=== PATIENT | male | born 1980 | race Caucasian/White ===

== ENCOUNTER 2019-05-06 17:05 | Emergency (ER) | payer OTHER, SELFPAY ==
--- NOTE | ~2019-05-06 | CT_ITS ---
EXAMINATION: CTA chest PE protocol DATE: 05/06/2019 17:38 INDICATION: Shortness of breath and dizziness, left-sided chest pain TECHNIQUE: Computed tomography angiography (CTA) of the chest was performed with 100 mL Omnipaque-350 intravenous contrast timed to evaluate the pulmonary arteries. Coronal maximum intensity projection 3D-reconstructions were created by the technologist. The dose-length product (DLP) was 398.04 mGy-cm. Automated exposure control and iterative reconstruction technique were employed. COMPARISON: None. FINDINGS: The pulmonary arteries are well-opacified. No pulmonary embolism is identified. The lungs a re free of acute opacities. There is no pleural effusion or pneumothorax. No pathologically enlarged thoracic lymph nodes are identified. The heart size is normal. IMPRESSION: 1. No pulmonary embolism or acute cardiopulmonary abnormality. Reviewed, dictated and finalized at location A.
[2019-05-06 17:07] VITALS: BP 144/95; PULSE 105; RESP 20; TEMP 36.3; O2SAT 100
[2019-05-06 17:10] VITALS: O2SAT 100
--- NOTE | 2019-05-06 17:12 | ED.SOB ---
HPI - SOB/Dyspnea General Chief Complaint: Shortness of Breath/Dyspnea Stated Complaint: shortness of breath for weeks Time Seen by Provider: 05/06/19 17:09 Source: patient Mode of arrival: ambulatory Limitations: no limitations History of Present Illness HPI Narrative: A 38 y/o male pt presents to the ED, with c/o intermittent SOB x 2 weeks. Pt notes he has a hx of asthma, but states this does not feel similar and his asthma medications are not helping to improve his Sx. He states that he was seen at an urgent care facility last night and had a CXR done that came back clear, and he was prescribed Prednisone and told to follow-up with his PCP on Wednesday. He states that upon waking up this morning he felt fine, but after doing dishes he felt winded. He also notes intermittent dizziness/lightheadedness throughout the day with normal activities, and intermittent aching CP. Pt states that he notices increased pain and discomfort in his chest and back when taking a deep breath, that he states feels similar to when he is running outside when it's cold. He also notes having acid reflux over the past few days. Pt states that he spoke to a friend who has had a Pulmonary embolism before that had similar Sx, and they suggested the pt come to the ED. He denies swelling in his legs, but notes some discomfort to bilateral calves (worse on the lt) with some movements. Pt states he works from home and has no known sick contacts. He notes a PMHx of asthma and has NKA. MD elicited complaint: shortness of breath Pertinent past history: asthma Onset (ago): week(s) (2) Exacerbating factors: other (with normal activity) Known history of: asthma Associated symptoms: chest pain (intermittent aching), pain with inspiration (chest and back), dizziness (intermittent), lightheadedness (intermittent) and other (discomfort to bilateral calves, worse on lt) Treatment prior to arrival: other (Prednisone, asthma medications) Related Data Allergies Allergy/AdvReac Type Severity Reaction Status Date / Time No Known Allergies Allergy Verified 05/06/19 17:11 Review of Systems Review of Systems: All systems reviewed & are unremarkable except as noted in HPI and below Cardiovascular: Cardiovascular: Reports chest pain (intermittent ache), Denies leg edema and Reports other (discomfort in calves, worse on lt) Respiratory: Respiratory: Reports pain on inspiration (chest and back pain with deep breathes) and Reports dyspnea Gastrointestinal: Gastrointestinal: Reports other (acid reflux) Musculoskeletal: Musculoskeletal: Reports back pain (with deep breathes) Neurologic: Reports dizziness (intermittent) and Reports other (intermittent lightheadedness) [facility] Past Medical History Medical History (Updated 05/06/19 @ 18:26 by Mc Godfrey MD) Asthma Family History Family History (Updated 03/13/16 @ 08:14 by DOCTOR UNKNOWN) Father Hypertension Mother Family history of hypothyroidism Other Cerebrovascular accident Family history of cardiovascular disease Family history of malignant neoplasm Social History Social History (Updated 05/06/19 @ 18:12 by Milad [employer]) Smoking status: Never smoker Alcohol intake: current Occupation/Education: occupation Additional occupation/education comments: works from home Comments rt hand tendon surgery Exam Const: General: healthy appearing, no acute distress and alert Nutritional Appearance: well nourished Orientation/consciousness: patient oriented x3 HENMT: Head: normal to inspection Mouth: Yes moist mucous membranes Neck: Neck: normal visual inspection Chest: Chest palpation & inspection: normal inspection of the chest Resp: Effort & Inspection: normal respiratory effort Auscultation: rales on the left at the base Cardio: Rate: tachycardic Rhythm: regular rhythm GI: GI Palp: Yes Soft to palpation and No Tenderness to palpation present (GI) Skin: General skin exam: normal color
[2019-05-06 17:34] LABS: Estimated CRCL calculation 78 ml/min; Estimated Glomerular Filt Rate > 60
--- NOTE | 2019-05-06 17:36 | ECG_ITS ---
Measurements Intervals [place] Rate: 102 P: 75 TX: 128 QRS: 40 QRSD: 112 T: 71 QT: 397 QTc: 519 Interpretive Statements SINUS TACHYCARDIA VENTRICULAR PREMATURE COMPLEX INCOMPLETE RIGHT BUNDLE BRANCH BLOCK CANNOT RULE OUT SEPTAL INFARCT, AGE INDETERMINATE ABNORMAL ECG Electronically Signed On 05-07-2019 7:54:49 CDT by Marv Cowan D.O.
[2019-05-06 17:44] LABS: Basophils Percent Auto 0.3 % (0.2-1.2); Hematocrit 43.8 % (42.0-52.0); Hemoglobin 15.1 g/dL (14.0-18.0); Immature Granulocyte Absolute 0.02 K/mm3 (0.00-0.031); Immature Granulocyte Percent A 0.2 % (0-0.5); Lymphocytes Absolute Auto 1.41 K/mm3 (0.9-3.2); Lymphocytes Percent Auto 16.2 % (18.3-44.2); Mean Corpuscular HGB Conc 34.5 g/dl (32-36); Mean Corpuscular Hemoglobin 30.1 pg (26-34); Mean Corpuscular Volume 87.3 fl (80-100); Mean Platelet Volume 10.3 fl (7.4-10.4); Monocytes Absolute Auto 0.3 K/mm3 (0.1-0.6); Monocytes Percent Auto 3.1 % (2.6-8.5); Neutrophils Percent Auto 80.2 % (45.5-73.1); Platelet Count Result 334 k/mm3 (150-375); Red Blood Count 5.02 M/mm3 (4.6-6.20); Red Cell Distribution Width 12.2 % (11.5-14.5); White Blood Count 8.7 K/mm3 (4.5-10.0)
[2019-05-06 17:54] LABS: Prothrombin Time 12.5 Seconds (11.1-14.7)
[2019-05-06 17:55] LABS: Partial Thromboplastin Time 26.6 SECONDS (22.3-36.8)
[2019-05-06 17:57] LABS: Blood Urea Nitrogen 17 mg/dL (9-20); Calcium 9.8 mg/dL (8.4-10.2); Carbon Dioxide 25 mmol/L (22-30); Chloride 104 mmol/L (98-107); Estimated CRCL calculation 85 ml/min; Estimated Glomerular Filt Rate > 60; Glucose 136 mg/dL (75-110); Sodium 136 mmol/L (137-145)
[2019-05-06 18:11] LABS: NT Pro B Type Natriuretic Pept 20 PG/ML (5-100); Troponin I < 0.012 ng/mL (0.000-0.034)
[2019-05-06 18:34] VITALS: BP 124/70; PULSE 99; RESP 20; TEMP 36.7; O2SAT 100
== END 2019-05-06 18:35 | disposition home or self-care (01) ==
PROVIDERS: Emergency Provider Emergency Medicine; PCP Internal Medicine
DX: R06.00 Dyspnea, unspecified (principal); J45.909 Unspecified asthma, uncomplicated; R00.0 Tachycardia, unspecified; I49.3 Ventricular premature depolarization; I45.10 Unspecified right bundle-branch block; R94.31 Abnormal electrocardiogram [ECG] [EKG]
CPT/HCPCS: 36415; 71275; 80048; 83880; 84484; 85025; 85610; 85730; 93005; 99284; Q9967

== ENCOUNTER 2019-06-13 08:53 | Outpatient (CLI) | payer OTHER, SELFPAY ==
--- NOTE | 2019-06-13 08:58 | EST_ITS ---
Patient Info Name: Niraj Singh Age: 39 years : 1980 Gender: Male Ht: 70 in Wt: 175 lbs BSA: 1.99 m2 HR: 75 bpm BP: 125 / 70 mmHg Technical Quality: Good Exam Date: 06/13/2019 9:21 AM Exam Location: [facility] Patient Status: Outpatient Admit Date: 06/13/2019 Staff Ordering Physician: Jennifer Kilgore NP Italian Tutor: Montez Delgado RDCS Attending Provider: MARV CATHERINE DO Referring Physician: Magui REARDON; Exercise Technologist: Orquidea Cooper RDCS Exercise Physician: Marv Catherine DO Exam Type: CA stress echo Study Info Indications R94.31 - Abnormal electrocardiogram ECG EKG Treadmill exercise stress echocardiogram is performed. Summary 1. 1. Negative Andres exercise stress test for ischemic ST changes by ECG criteria. 2. 2. Good functional capacity, achieving 13 METs or workload. 3. 3. Appropriate HR response to exercise. 4. 4. Appropriate HR recovery at 1 minute post exercise. 5. 5. Negative stress echocardiogram for ischemia by wall motion analysis. 6. 6. Patient informed of the above results. Stress Echo Findings Left Ventricle Appropriate increase in LV endocardial thickening with systole. Appropriate augmentation of contractility with systole. No wall motion abnormality. Left Ventricle Normal LV systolic function, no wall motion abnormality. Protocol: Andres Stress ECG Details Stage: REST Duration (min): 5 min : 2 sec Speed (mph): 0.0 Grade (%): 0 HR (bpm): 75 SBP (mmHg): 125 DBP (mmHg): 70 METS: --- Stage: REST Duration (min): 24 min : 1 sec Speed (mph): 0.0 Grade (%): 0 HR (bpm): 102 SBP (mmHg): 125 DBP (mmHg): 70 METS: --- Stage: STAGE 1 Duration (min): 1 min : 0 sec Speed (mph): 1.7 Grade (%): 10 HR (bpm): 101 SBP (mmHg): 125 DBP (mmHg): 70 METS: --- Stage: STAGE 1 Duration (min): 2 min : 0 sec Speed (mph): 1.7 Grade (%): 10 HR (bpm): 122 SBP (mmHg): 125 DBP (mmHg): 70 METS: --- Stage: STAGE 1 Duration (min): 3 min : 0 sec Speed (mph): 1.7 Grade (%): 10 HR (bpm): 124 SBP (mmHg): 143 DBP (mmHg): 70 METS: --- Stage: STAGE 2 Duration (min): 1 min : 0 sec Speed (mph): 2.5 Grade (%): 12 HR (bpm): 132 SBP (mmHg): 143 DBP (mmHg): 70 METS: --- Stage: STAGE 2 Duration (min): 2 min : 0 sec Speed (mph): 2.5 Grade (%): 12 HR (bpm): 140 SBP (mmHg): 167 DBP (mmHg): 71 METS: --- Stage: STAGE 2 Duration (min): 3 min : 0 sec Speed (mph): 2.5 Grade (%): 12 HR (bpm): 144 SBP (mmHg): 167 DBP (mmHg): 71 METS: --- Stage: STAGE 3 Duration (min): 1 min : 0 sec Speed (mph): 3.4 Grade (%): 14 HR (bpm): 158 SBP (mmHg): 166 DBP (mmHg): 73 METS: --- Stage: STAGE 3 Duration (min): 2 min : 0 sec Speed (mph): 3.4 Grade (%): 14 HR (bpm): 156 SBP (mmHg): 166 DBP (mmHg): 73 METS: --- Stage: STAGE
== END 2019-06-13 08:54 | disposition home or self-care (01) ==
PROVIDERS: PCP Internal Medicine; Visit Provider Nurse Practitioner
DX: R94.31 Abnormal electrocardiogram [ECG] [EKG] (principal)
CPT/HCPCS: 93351

== ENCOUNTER 2021-02-24 07:50 | Outpatient (CLI) | payer OTHER, SELFPAY ==
--- NOTE | 2021-02-25 14:38 | WPDHOMESLEEP ---
Sleep Study - Home Unattended Date of Study: 02/24/21 <Cheryl Benjamin DO - Last Filed: 02/25/21 14:54> Ordering Provider: Cheryl Benjamin DO <Cheryl Benjamin DO - Last Filed: 02/25/21 14:54> Interpreting Provider: Cheryl Benjamin DO <Cheryl Benjamin DO - Last Filed: 02/25/21 14:54> Home Sleep Study Type: Apnea Link Air <Cheryl Benjamin DO - Last Filed: 02/25/21 14:54> Height: 1.78 m <Cheryl Benjamin DO - Last Filed: 02/25/21 14:54> Weight: 79.379 kg <Cheryl Benjamin DO - Last Filed: 02/25/21 14:54> Body Mass Index: 25.1 <Cheryl Benjamin DO - Last Filed: 02/25/21 14:54> Neck Circumference (inches): 15 <Cheryl Benjamin DO - Last Filed: 02/25/21 14:54> [place]: 6 <Cheryl Benjamin DO - Last Filed: 02/25/21 14:54> Reason for Sleep Study Unrefreshing sleep <Cheryl Benjamin DO - Last Filed: 02/25/21 14:54> Sleep History The patient is a 40-year-old male with seasonal allergies, asthma and GERD that had a home sleep test ordered for evaluation of sleep JILL. The patient states that he will occasionally wake up feeling unrefreshed. he denies awakening from sleep short of breath. He rarely awakens at night with heartburn, belching or cough. He occasionally snores but it is rarely loud enough that others. He occasionally has trouble sleeping when he has a cold. He denies waking up gasping for air throughout the night. He denies having breathing problems at night observed by others. He denies having heart palpitations or irregular heartbeats during the night. He rarely falls asleep during the day and never while driving. He denies sleep paralysis, cataplexy and hypnagogic / hypnopompic hallucinations. He denies having trouble at work due to sleepiness. He denies having nightmares. He frequently has thoughts racing through his mind. He denies feeling sad or depressed. He rarely has anxiety. He frequently notices parts of his body jerk. He denies kicking during the night. He denies crawling and aching feelings in his legs as well as leg pain during night. He occasionally grinds his teeth during sleep but denies waking up with morning jaw pain. He occasionally is bothered by pain during the day but never awakened by pain during the night. He rarely wakes up feeling stiff in the morning with sore and achy muscles. He rarely wakes up with pain in the neck, spine and other joints. He goes to bed between 10 and 11:00 p.m. on the weekdays and between 11:00 p.m. and midnight on the weekends. It takes him 15-30 minutes to fall asleep. He will wake up 1-2 times throughout the night. When he wakes up, he will roll over and fall back asleep within a few minutes. He wakes up at 7:00 a.m. on the weekdays and 9:00 a.m. or later on the weekends. He typically gets 6-8 hours of sleep per night. He will stay in bed for less than 15 minutes after waking up in the morning. He currently lives with his and 4 children. He denies consuming any caffeinated beverages within 2 hours of bedtime. He does not engage in physical exercise before bedtime. He will not read or watch television before falling asleep. Does not take naps in afternoon or the evening. He rarely has caffeinated beverages during the day. He denies tobacco, alcohol recreational drug use. <Cheryl Benjamin DO - Last Filed: 02/25/21 14:54> [facility] Past Medical History Medical History: Medical History Allergies Asthma Bronchitis Heartburn <Cheryl Benjamin DO - Last Filed: 02/25/21 14:54> Surgical History Surgical History: Surgical History H/O: vasectomy History of hand surgery rt hand 5th digit repaired tendon 1998 Hx of inguinal hernia repair <Cheryl Benjamin DO - Last Filed: 02/25/21 14:54> Family History Family
[2021-02-25 14:54] VITALS: BMI 25.1
== END 2021-02-25 09:27 | disposition home or self-care (01) ==
LOC: ANHCSM 07:59
PROVIDERS: PCP Internal Medicine; Visit Provider Family Medicine
DX: G47.10 Hypersomnia, unspecified (principal); G47.9 Sleep disorder, unspecified
CPT/HCPCS: 95806

== ENCOUNTER 2021-03-05 00:51 | Day surgery (SDC) | payer OTHER, SELFPAY ==
--- NOTE | 2021-03-05 07:31 | P.PNAN_ITS ---
Anes - Initial Pre Proc Eval Procedure: Operation Date: 03/05/21 09:30 Proposed Procedures p Esophagogastroduodenoscopy - Deon Kimbrough MD Date/Time: 03/05/21 07:31 Surgeon: Deon Kimbrough MD Pre Op Diagnosis: GERD Patient Data Age: 40 Gender: M Height: Weight: Allergies Allergy/AdvReac Type Severity Reaction Status Date / Time No Known Allergies Allergy Verified 03/05/21 08:20 Home Medications Medication Instructions Recorded Confirmed Type albuterol sulfate 90 mcg/actuation 2 puff INHALATION Q4-6H PRN #18 gm 05/03/19 03/05/21 Rx aerosol inhaler fluticasone propionate 50 2 spray NASAL DAILY PRN 06/02/19 03/05/21 History mcg/actuation nasal spray,suspension cetirizine 10 mg capsule 10 mg PO DAILY 06/05/19 03/05/21 History Advair Diskus 250 mcg-50 mcg/dose 1 inh INHALATION BID 180 Days #60 01/16/21 03/05/21 Rx powder for inhalation ea NS esomeprazole magnesium 20 mg 20 mg PO BID 90 Days #60 cap 01/16/21 03/05/21 Rx capsule,delayed release cholecalciferol (vitamin D3) 50 2,000 unit PO DAILY cap 02/17/21 03/05/21 History mcg (2,000 unit) capsule Patient hx anesthesia problems: none Family hx anesthesia problems: none Results Review: All pre-operative results and documents have been reviewed as part of the pre-operative evaluation. [facility] Past Medical History Medical History Allergies Asthma Bronchitis Heartburn Surgical History Surgical History H/O: vasectomy History of hand surgery rt hand 5th digit repaired tendon 1998 Hx of inguinal hernia repair Family History Family History Father Hypertension Mother Family history of hypothyroidism Gall bladder disease Other Cerebrovascular accident Family history of cardiovascular disease Family history of malignant neoplasm Social History Social History Smoking status: Never smoker Alcohol intake: current Alcohol use details: Occasionally Substance use: never Substance use type: does not use Living arrangements: with family Additional occupation/education comments: works from home Spiritual care concerns: No Anes - Eval Final PreProcedure Day of Procedure 03/05/21 07:31 Patient weight: overweight Heart: regular rate and rhythm Lungs: clear to auscultation and normal air movement Airway: Mallampati scale class II Neurological: alert and oriented Last oral intake: >/= 8 hours ASA classification: II Emergent: no Anesthetic plan: proceed Anesthesia type and monitoring: general GIVS and standard monitoring Results Review: All pre-operative results and documents have been reviewed as part of the pre-operative evaluation. Informed Consent: The patient's anesthetic plan and its attendant risks and benefits were discussed with the patient/family/POA. Questions were solicited and answers provided to the satisfaction of the patient/family/POA.
[2021-03-05 08:15] VITALS: BP 131/81; PULSE 76; RESP 18; TEMP 36.3; O2SAT 99; BMI 25.6
[2021-03-05] MEDS: LACTATED RINGERS 1,000 ML 150 ML IV CONT (08:30)
--- NOTE | 2021-03-05 09:19 | PM.HPGS ---
History of Present Illness History of Present Illness Consent: Risks, benefits, and alternatives have been discussed and questions answered. Patient agrees to proceed with procedure. Chief complaint: GERD Narrative: Niraj Singh is a 40 year old male with gerd for years and has been on ppi for long time, had egd about 20 years ago. Also few times noted food getting stuck, symptoms better now with nexium 20 mg bid. Recent cbc normal, h pylogy ag in stool negative. Review of Systems Constitutional: Constitutional: Denies headache(s) and Denies weakness Eyes: Eyes: Denies blurry vision ENT: Reports Normal hearing present, Denies headache(s) and Denies neck pain Cardiovascular: Cardiovascular: Denies chest pain and Denies dyspnea Respiratory: Respiratory: Denies dyspnea Gastrointestinal: Gastrointestinal: Reports no additional gastrointestinal complaints Genitourinary: Genitourinary: Denies dysuria Musculoskeletal: Musculoskeletal: Denies neck pain Integumentary/Breasts: Skin/Breast: Denies dry skin Neurologic: Reports Normal hearing present, Denies headache(s) and Denies weakness Psychiatric: Psychiatric: Denies anxiety Endocrine: Endocrine: Denies change in body appearance Hematologic/Lymphatic: Hematologic/Lymphatic: Denies easy bleeding Allergic/Immunologic: Allergic/Immunologic: Denies urticaria PMFSH Past Medical History Medical History Allergies Asthma Bronchitis Heartburn Surgical History Surgical History H/O: vasectomy History of hand surgery rt hand 5th digit repaired tendon 1998 Hx of inguinal hernia repair Family History Family History Father Hypertension Mother Family history of hypothyroidism Gall bladder disease Other Cerebrovascular accident Family history of cardiovascular disease Family history of malignant neoplasm Social History Social History Smoking status: Never smoker Alcohol intake: current Alcohol use details: Occasionally Substance use: never Substance use type: does not use Living arrangements: with family Additional occupation/education comments: works from home Spiritual care concerns: No Meds Home Medications and Allergies Home Medications Medication Instructions Recorded Confirmed Type albuterol sulfate 90 mcg/actuation 2 puff INHALATION Q4-6H PRN #18 gm 05/03/19 03/05/21 Rx aerosol inhaler fluticasone propionate 50 2 spray NASAL DAILY PRN 06/02/19 03/05/21 History mcg/actuation nasal spray,suspension cetirizine 10 mg capsule 10 mg PO DAILY 06/05/19 03/05/21 History Advair Diskus 250 mcg-50 mcg/dose 1 inh INHALATION BID 180 Days #60 01/16/21 03/05/21 Rx powder for inhalation ea NS esomeprazole magnesium 20 mg 20 mg PO BID 90 Days #60 cap 01/16/21 03/05/21 Rx capsule,delayed release cholecalciferol (vitamin D3) 50 2,000 unit PO DAILY cap 02/17/21 03/05/21 History mcg (2,000 unit) capsule Allergies Allergy/AdvReac Type Severity Reaction Status Date / Time No Known Allergies Allergy Verified 03/05/21 08:20 Vital Signs Vital Signs - 24 hr 03/05/21 08:15 Temperature 97.3 F L Pulse Rate 76 Respiratory Rate 18 Blood Pressure 131/81 Pulse Oximetry 99 Exam Const: General: comfortable and no acute distress HENMT: General nose exam: Normal nares present Eyes: General: appearance normal, both eyes and all related structures Neck: Neck: no JVD Resp: Auscultation: clear to auscultation bilaterally Cardio: Rate: regular rate Rhythm: regular rhythm GI: Inspection: non-distended GI Palp: Yes Soft to palpation Skin: General skin exam: normal color Neuro: General: gait normal Speech: normal speech Extrem: General: normal to inspection Psych:
[2021-03-05 09:42] VITALS: BP 111/70; PULSE 76; RESP 14; O2SAT 96
[2021-03-05 09:52] VITALS: BP 115/73; PULSE 84; RESP 17; O2SAT 97
[2021-03-05 10:02] VITALS: BP 117/75; PULSE 72; RESP 15; O2SAT 96
== END 2021-03-05 10:15 | disposition home or self-care (01) ==
PROVIDERS: PCP Internal Medicine; Visit Provider Internal Medicine Gastroenterology
PROC: 0DJ08ZZ Inspection of Upper Intestinal Tract, Via Natural or Artificial Opening Endoscopic (ICD-10-PCS; CPT 43235; principal; 2021-03-05 09:30)
DX: K21.9 Gastro-esophageal reflux disease without esophagitis (principal); K22.2 Esophageal obstruction; K29.50 Unspecified chronic gastritis without bleeding; J45.909 Unspecified asthma, uncomplicated; Z79.51 Long term (current) use of inhaled steroids
CPT/HCPCS: 43239; 43249; 88305; C1726; J2704; J7120

== ENCOUNTER 2022-07-31 08:25 | Outpatient (CLI) | payer BC, SELFPAY ==
[2022-07-31 16:33] LABS: Basophils Absolute Auto 0.1 K/mm3 (0.0-0.1); Basophils Percent Auto 1.3 % (0.2-1.2); Eosinophils Absolute Auto 0.5 K/mm3 (0-0.3); Eosinophils Percent Auto 7.6 % (0-4.4); Hematocrit 42.7 % (42.0-52.0); Hemoglobin 14.2 g/dL (14.0-18.0); Immature Granulocyte Absolute 0.01 K/mm3 (0.00-0.031); Immature Granulocyte Percent A 0.2 % (0-0.5); Lymphocytes Absolute Auto 2.11 K/mm3 (0.9-3.2); Lymphocytes Percent Auto 35.5 % (18.3-44.2); Mean Corpuscular HGB Conc 33.3 g/dl (32-36); Mean Corpuscular Hemoglobin 29.8 pg (26-34); Mean Corpuscular Volume 89.5 fl (80-100); Mean Platelet Volume 10.7 fl (7.4-10.4); Monocytes Absolute Auto 0.5 K/mm3 (0.1-0.6); Monocytes Percent Auto 8.8 % (2.6-8.5); Neutrophils Absolute Auto 2.8 K/mm3 (1.3-6.7); Neutrophils Percent Auto 46.6 % (45.5-73.1); Platelet Count Result 290 k/mm3 (150-375); Red Blood Count 4.77 M/mm3 (4.6-6.20); Red Cell Distribution Width 12.3 % (11.5-14.5); White Blood Count 5.9 K/mm3 (4.5-10.0)
[2022-07-31 16:41] LABS: Alanine Aminotransferase 46 U/L (6-50); Albumin Level 4.5 g/dL (3.5-5.1); Alkaline Phosphatase 78 U/L (38-126); Anion Gap 9 mmol/L (8-16); Aspartate Amino Transferase 37 U/L (17-59); Bilirubin,Total 0.8 mg/dL (0.2-1.3); Blood Urea Nitrogen 19 mg/dL (9-20); Calcium 9.3 mg/dL (8.4-10.2); Carbon Dioxide 29 mmol/L (22-30); Chloride 102 mmol/L (98-107); Cholesterol 170 mg/dL (0-200); Estimated Glomerular Filt Rate > 60; Glucose 86 mg/dL (65-110); HDL Direct 37 mg/dL; Potassium 4.4 mmol/L (3.4-5.0); Sodium 140 mmol/L (137-145); Triglycerides 137 mg/dL (<150)
[2022-07-31 16:53] LABS: LDL Cholesterol Direct 91 mg/dL
[2022-07-31 16:59] LABS: Vitamin D 25 Hydroxy 37.7 ng/mL
== END 2022-07-31 08:26 | disposition home or self-care (01) ==
LOC: ANHGOSHLAB 08:27
PROVIDERS: PCP Internal Medicine; Visit Provider Nurse Practitioner
DX: J45.909 Unspecified asthma, uncomplicated (principal); E55.9 Vitamin D deficiency, unspecified; Z13.220 Encounter for screening for lipoid disorders
CPT/HCPCS: 36415; 80053; 80061; 82306; 84443; 85025

== ENCOUNTER 2022-08-03 21:39 | Emergency (ER) | payer BC, SELFPAY ==
--- NOTE | ~2022-08-03 | XR_ITS ---
EXAMINATION: XR chest 2V Exam Date/Time: 08/03/2022 22:24 CDT HISTORY: SOB WITH TIGHTNESS FOR 5 DAYS OFF AND ON, HX OF ASTHMA Comparison: CTPA 05/06/2019. RESULT: Lines, tubes, and devices: None. Lungs and pleura: Clear. Cardiomediastinal silhouette: Stable. Other: No acute osseous or upper abdominal finding. IMPRESSION: No acute cardiopulmonary process. Reviewed, dictated and finalized at location K.
[2022-08-03 21:57] VITALS: BP 152/94; PULSE 72; RESP 18; TEMP 36.7; O2SAT 100
--- NOTE | 2022-08-03 22:02 | ECG_ITS ---
Measurements Intervals [place] Rate: 74 P: 69 ND: 143 QRS: 23 QRSD: 115 T: 61 QT: 399 QTc: 443 Interpretive Statements SINUS RHYTHM WITH FREQUENT VENTRICULAR PREMATURE COMPLEXES MODERATE INTRAVENTRICULAR CONDUCTION DELAY [110+ ms QRS DURATION] ABNORMAL RHYTHM ECG COMPARED TO ECG 05/06/2019 17:10:31 SINUS RHYTHM NOW PRESENT INTRAVENTRICULAR CONDUCTION DELAY NOW PRESENT Electronically Signed On 08-04-2022 15:01:04 CDT by Lona Rivera M.D.
[2022-08-03 22:13] LABS: Basophils Absolute Auto 0.1 K/mm3 (0.0-0.1); Basophils Percent Auto 1.1 % (0.2-1.2); Eosinophils Absolute Auto 0.4 K/mm3 (0-0.3); Eosinophils Percent Auto 4.6 % (0-4.4); Hematocrit 40.8 % (42.0-52.0); Hemoglobin 14.3 g/dL (14.0-18.0); Immature Granulocyte Absolute 0.02 K/mm3 (0.00-0.031); Immature Granulocyte Percent A 0.2 % (0-0.5); Mean Corpuscular Hemoglobin 30.3 pg (26-34); Mean Corpuscular Volume 86.4 fl (80-100); Mean Platelet Volume 9.8 fl (7.4-10.4); Monocytes Absolute Auto 0.7 K/mm3 (0.1-0.6); Monocytes Percent Auto 7.7 % (2.6-8.5); Neutrophils Absolute Auto 3.6 K/mm3 (1.3-6.7); Neutrophils Percent Auto 42.4 % (45.5-73.1); Platelet Count Result 299 k/mm3 (150-375); Red Blood Count 4.72 M/mm3 (4.6-6.20); Red Cell Distribution Width 12.2 % (11.5-14.5); White Blood Count 8.4 K/mm3 (4.5-10.0)
[2022-08-03 22:22] LABS: Alanine Aminotransferase 39 U/L (6-50); Albumin Level 4.6 g/dL (3.5-5.1); Alkaline Phosphatase 99 U/L (38-126); Anion Gap 11 mmol/L (8-16); Aspartate Amino Transferase 29 U/L (17-59); Bilirubin,Total 0.4 mg/dL (0.2-1.3); Blood Urea Nitrogen 16 mg/dL (9-20); Calcium 9.2 mg/dL (8.4-10.2); Carbon Dioxide 21 mmol/L (22-30); Chloride 105 mmol/L (98-107); Estimated CRCL calculation 82 ml/min; Estimated Glomerular Filt Rate > 60; Glucose 118 mg/dL (65-110); Potassium 3.3 mmol/L (3.4-5.0); Sodium 137 mmol/L (137-145)
[2022-08-03 23:45] VITALS: PULSE 86
[2022-08-03 23:46] VITALS: BP 153/103; PULSE 73; RESP 12; TEMP 36.5; O2SAT 100
[2022-08-04] MEDS: POTASSIUM CHLORIDE 20 MEQ PACKET (FOR LIQUID) 40 MEQ PO (00:29)
[2022-08-04 00:54] LABS: Magnesium 2.2 mg/dL (1.6-2.3)
[2022-08-04 01:10] LABS: Troponin I < 0.012 ng/mL (0.000-0.034)
[2022-08-04 01:18] VITALS: BP 132/84; PULSE 67; RESP 12; O2SAT 100
--- NOTE | 2022-08-04 01:59 | ED.SOB ---
HPI - SOB/Dyspnea General Chief Complaint: Shortness of Breath/Dyspnea Stated Complaint: shortness of breath/headache Time Seen by Provider: 08/04/22 00:02 History of Present Illness HPI Narrative: This is a 42-year-old male with past history of asthma, coming in with intermittent shortness of breath for the past 10 days. He denies known sick contacts and has had no recent change in medications. The dyspnea is intermittent and can occur during exertion or while at rest. He denies associated chest pain, cough or bleeding from any source. Related Data Home Medications Medication Instructions Recorded Confirmed fluticasone propionate 50 2 spray intranasal DAILY PRN Nasal 06/02/19 07/24/22 mcg/actuation nasal Congestion spray,suspension (Flonase Allergy Relief) cetirizine 10 mg capsule (Zyrtec) 10 mg PO DAILY 06/05/19 07/24/22 cholecalciferol (vitamin D3) 50 2,000 unit PO DAILY 02/17/21 07/24/22 mcg (2,000 unit) capsule finasteride 1 mg tablet 1 mg PO DAILY 07/24/22 07/24/22 Allergies Allergy/AdvReac Type Severity Reaction Status Date / Time No Known Allergies Allergy Verified 08/03/22 21:39 Review of Systems Review of Systems: CONSTITUTIONAL: Denies fever, chills, or sweats. CARDIOVASCULAR: Denies chest pain, palpitations, or edema. RESPIRATORY: Intermittent dyspnea Denies cough GASTROINTESTINAL: Denies abdominal pain, nausea, vomiting, or diarrhea. GENITOURINARY: Denies dysuria or hematuria. SKIN: Denies rash or itching. MUSCULOSKELETAL: Denies back pain, joint pain, or myalgia. NEUROLOGIC: Intermittent headache Denies numbness, dizziness, or weakness. PSYCHIATRIC: Denies anxiety or depression. [facility] Past Medical History Medical History Allergies Asthma Bronchitis Heartburn Surgical History Surgical History H/O: vasectomy History of hand surgery rt hand 5th digit repaired tendon 1998 Hx of inguinal hernia repair Family History Family History Father Hypertension Mother Family history of hypothyroidism Gall bladder disease Other Cerebrovascular accident Family history of cardiovascular disease Family history of malignant neoplasm Social History Social History Smoking status: Never smoker Alcohol intake: current Alcohol use details: Occasionally Substance use: never Substance use type: does not use Lack of Transportation: No Lack of Food: Never True Current Housing: I Have Housing Concerned About Future Housing: No Difficulty Paying Gas/Electric Bills: No Difficulty Paying for Meds: No Currently Unemployed: No Education: Bachelor's Degree Difficulty w/ Childcare or Family Care: No Living arrangements: with family Occupation/Education: occupation Additional occupation/education comments: works from home Spiritual care concerns: No Exam Narrative: GENERAL: Well-developed, well-nourished, and in no acute distress. HEAD: Normocephalic, atraumatic. EYES: PERRLA and EOMI. ENT: Nares clear, no rhinorrhea or epistaxis. Mucous membranes moist. Oropharynx without tonsillar hypertrophy exudate or other lesions. NECK: Supple. No adenopathy or masses. No JVD CHEST: Clear to auscultation. No respiratory distress. No wheezes rales or rhonchi HEART: Regular rate and rhythm. No murmur heard. Normal peripheral pulses. ABDOMEN: Soft, nontender, nondistended, normal active bowel sounds. EXTREMITIES: Normal range of motion. No edema. SKIN: Warm, dry, no rash. NEURO: No focal deficits. Alert and oriented x3. PSYCH: Normal mood and affect. Course Course Emergency Course: 01:50 - EKG demonstrates PVCs but is not concerning for ischemia. Labs demonstrate mild hypokalemia 3.3 but otherwise unremarkable. Potassium replet
[2022-08-04 02:22] VITALS: BP 147/80; PULSE 69; RESP 12; TEMP 36.4; O2SAT 99
== END 2022-08-04 02:23 | disposition home or self-care (01) ==
PROVIDERS: Emergency Provider Preventive Medicine Aerospace Medicine; PCP Internal Medicine
DX: R06.00 Dyspnea, unspecified (principal); E87.6 Hypokalemia; I49.3 Ventricular premature depolarization; J45.909 Unspecified asthma, uncomplicated
CPT/HCPCS: 36415; 71046; 80053; 83735; 84484; 85025; 93005; 99284; A9270

== ENCOUNTER 2022-12-16 00:54 | Day surgery (SDC) | payer BC, SELFPAY ==
[2022-12-02 14:51] VITALS: BMI 26.5
[2022-12-16 11:14] VITALS: BP 127/82; PULSE 77; RESP 18; TEMP 36.4; O2SAT 100
--- NOTE | 2022-12-16 11:20 | WPDANESEPPF ---
Anes - Initial Pre Proc Eval Procedure: Operation Date: 12/16/22 12:30 Proposed Procedures p Esophagogastroduodenoscopy EGD - Deon Kimbrough MD Date/Time: 12/16/22 11:20 Surgeon: Deon Kimbrough MD Pre Op Diagnosis: heartburn, gastritis unspecified without bleeding Patient Data Age: 42 Gender: M Height: 1.78 m Weight: 84.5 kg Last Vital Signs Temp 97.6 F 12/16/22 11:14 Pulse 77 12/16/22 11:14 Resp 18 12/16/22 11:14 BP 127/82 12/16/22 11:14 Pulse Ox 100 12/16/22 11:14 O2 Del Method Room Air 12/16/22 11:14 Allergies Allergy/AdvReac Type Severity Reaction Status Date / Time No Known Allergies Allergy Verified 12/16/22 11:13 Home Medications Medication Instructions Recorded Confirmed Type fluticasone propionate 50 2 spray intranasal DAILY PRN Nasal 06/02/19 12/02/22 History mcg/actuation nasal Congestion spray,suspension (Flonase Allergy Relief) cetirizine 10 mg capsule (Zyrtec) 10 mg PO DAILY 06/05/19 12/02/22 History cholecalciferol (vitamin D3) 50 2,000 unit PO DAILY 02/17/21 12/02/22 History mcg (2,000 unit) capsule albuterol sulfate 90 mcg/actuation 2 puff inhalation Q4-6H PRN 07/24/22 12/02/22 Rx aerosol inhaler (ProAir HFA) shortness of breath or wheezing #18 grams finasteride 1 mg tablet 1 mg PO DAILY 07/24/22 12/02/22 History montelukast 10 mg tablet 10 mg PO QHS #90 tabs 08/12/22 12/02/22 Rx omeprazole 20 mg capsule,delayed 20 mg PO BID #180 caps 08/12/22 12/02/22 Rx release fluticasone fur. 100 mcg-umeclid 1 inh inhalation DAILY 12/02/22 12/02/22 History 62.5 mcg-vilant 25 mcg inhalat.powder (Trelegy Ellipta) Patient hx anesthesia problems: none Family hx anesthesia problems: none Results Review: All pre-operative results and documents have been reviewed as part of the pre-operative evaluation. [facility] Past Medical History Medical History Allergies Asthma Bronchitis Heartburn Non-cardiac chest pain Surgical History Surgical History H/O: vasectomy History of hand surgery rt hand 5th digit repaired tendon 1998 Hx of inguinal hernia repair Family History Family History Father Hypertension Mother Family history of hypothyroidism Gall bladder disease Other Cerebrovascular accident Family history of cardiovascular disease Family history of malignant neoplasm Social History Social History Smoking status: Never smoker Alcohol intake: current Alcohol use details: occasionally Substance use: never Substance use type: does not use Lack of Transportation: No Lack of Food: Never True Current Housing: I Have Housing Concerned About Future Housing: No Difficulty Paying Gas/Electric Bills: No Difficulty Paying for Meds: No Currently Unemployed: No Education: Bachelor's Degree Difficulty w/ Childcare or Family Care: No Living arrangements: with family Occupation/Education: occupation Additional occupation/education comments: works from home Spiritual care concerns: No Anes - Eval Final PreProcedure Day of Procedure 12/16/22 11:20 Patient weight: normal Heart: regular rate and rhythm Lungs: clear to auscultation Airway: Mallampati scale class II Neurological: alert and oriented Last oral intake: >/= 8 hours ASA classification: II Emergent: no Anesthetic plan: proceed Anesthesia type and monitoring: general GIVS and standard monitoring Results Review: All pre-operative results and documents have been reviewed as part of the pre-operative evaluation. Informed Consent: The patient's anesthetic plan and its attendant risks and benefits were discussed with the patient/family/POA. Questions were solicited and answers provided
[2022-12-16] MEDS: LACTATED RINGERS 1,000 ML 150 ML IV CONT (11:30)
--- NOTE | 2022-12-16 12:08 | PM.HPGS ---
History of Present Illness History of Present Illness Consent: Risks, benefits, and alternatives have been discussed and questions answered. Patient agrees to proceed with procedure. Chief complaint: heartburn, gastritis unspecified without bleeding Narrative: Niraj Singh is a 42 year old male with recent office visit for chest pressure and dyspepsia but better after changed his diet, still using ppi daily. ?He had EGD 1.5 year ago, had gastritis, also ring dilated up to 19mm, Review of Systems Constitutional: Constitutional: Denies headache(s) and Denies weakness Eyes: Eyes: Denies blurry vision ENT: Reports Normal hearing present, Denies headache(s) and Denies neck pain Cardiovascular: Cardiovascular: Denies chest pain and Denies dyspnea Respiratory: Respiratory: Denies dyspnea Gastrointestinal: Gastrointestinal: Reports no additional gastrointestinal complaints Genitourinary: Genitourinary: Denies dysuria Musculoskeletal: Musculoskeletal: Denies neck pain Integumentary/Breasts: Skin/Breast: Denies dry skin Neurologic: Reports Normal hearing present, Denies headache(s) and Denies weakness Psychiatric: Psychiatric: Denies anxiety Endocrine: Endocrine: Denies change in body appearance Hematologic/Lymphatic: Hematologic/Lymphatic: Denies easy bleeding Allergic/Immunologic: Allergic/Immunologic: Denies urticaria PMFSH Past Medical History Medical History Allergies Asthma Bronchitis Heartburn Non-cardiac chest pain Surgical History Surgical History H/O: vasectomy History of hand surgery rt hand 5th digit repaired tendon 1998 Hx of inguinal hernia repair Family History Family History Father Hypertension Mother Family history of hypothyroidism Gall bladder disease Other Cerebrovascular accident Family history of cardiovascular disease Family history of malignant neoplasm Social History Social History Smoking status: Never smoker Alcohol intake: current Alcohol use details: occasionally Substance use: never Substance use type: does not use Lack of Transportation: No Lack of Food: Never True Current Housing: I Have Housing Concerned About Future Housing: No Difficulty Paying Gas/Electric Bills: No Difficulty Paying for Meds: No Currently Unemployed: No Education: Bachelor's Degree Difficulty w/ Childcare or Family Care: No Living arrangements: with family Occupation/Education: occupation Additional occupation/education comments: works from home Spiritual care concerns: No Meds Home Medications and Allergies Home Medications Medication Instructions Recorded Confirmed Type fluticasone propionate 50 2 spray intranasal DAILY PRN Nasal 06/02/19 12/02/22 History mcg/actuation nasal Congestion spray,suspension (Flonase Allergy Relief) cetirizine 10 mg capsule (Zyrtec) 10 mg PO DAILY 06/05/19 12/02/22 History cholecalciferol (vitamin D3) 50 2,000 unit PO DAILY 02/17/21 12/02/22 History mcg (2,000 unit) capsule albuterol sulfate 90 mcg/actuation 2 puff inhalation Q4-6H PRN 07/24/22 12/02/22 Rx aerosol inhaler (ProAir HFA) shortness of breath or wheezing #18 grams finasteride 1 mg tablet 1 mg PO DAILY 07/24/22 12/02/22 History montelukast 10 mg tablet 10 mg PO QHS #90 tabs 08/12/22 12/02/22 Rx omeprazole 20 mg capsule,delayed 20 mg PO BID #180 caps 08/12/22 12/02/22 Rx release fluticasone fur. 100 mcg-umeclid 1 inh inhalation DAILY 12/02/22 12/02/22 History 62.5 mcg-vilant 25 mcg inhalat.powder (Trelegy Ellipta) Allergies Allergy/AdvReac Type Severity Reaction Status Date / Time No Known Allergies Allergy Verified 12/16/22 11:13 Vital Signs Vital Signs - 24 hr 12/16/22 11:
[2022-12-16 12:25] VITALS: BP 108/61; PULSE 72; RESP 20; O2SAT 96
[2022-12-16 12:35] VITALS: BP 113/72; PULSE 72; RESP 16; O2SAT 96
[2022-12-16 12:45] VITALS: BP 121/73; PULSE 79; RESP 20; O2SAT 96
== END 2022-12-16 12:54 | disposition home or self-care (01) ==
PROVIDERS: PCP Family Medicine; Visit Provider Internal Medicine Gastroenterology
PROC: 0DJ08ZZ Inspection of Upper Intestinal Tract, Via Natural or Artificial Opening Endoscopic (ICD-10-PCS; CPT 43235; principal; 2022-12-16 12:30)
DX: K21.00 Gastro-esophageal reflux disease with esophagitis, without bleeding (principal); K22.2 Esophageal obstruction; K44.9 Diaphragmatic hernia without obstruction or gangrene; J45.909 Unspecified asthma, uncomplicated; Z82.49 Family history of ischemic heart disease and other diseases of the circulatory system; Z79.51 Long term (current) use of inhaled steroids
CPT/HCPCS: 43239; 43249; 88305; C1726; J2001; J2704; J7120

== ENCOUNTER 2023-04-21 09:36 | Outpatient (CLI) | payer BC, SELFPAY ==
--- NOTE | ~2023-04-21 | XR_ITS ---
EXAMINATION: XR lumbar spine min 4V DATE: 04/21/2023 10:03 INDICATION: Pain in left hip. TECHNIQUE: 5 views of lumbar spine were obtained. COMPARISON: None. FINDINGS: There is 6 degrees dextrocurvature of thoracolumbar spine. Vertebral body heights are torie l. Intervertebral disc heights are normal. There is multilevel mild facet joint osteoarthritis. IMPRESSION: 1. Mild lumbar facet joint osteoarthritis. 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
--- NOTE | ~2023-04-21 | XR_ITS ---
AP view of the pelvis and AP and lateral views of the left hip Clinical history: Pain Findings: No acute fracture or dislocation is seen. Osseous alignment is anatomic. Bilateral hip and SI joint spaces are preserved. Soft tissues are unremarkable. Impression: No significant abnormality is seen. Reviewed, dictated and finalized at [facility]. [employer] DELIVERY WORK[employer] Impression: No significant abnormality is seen.
--- NOTE | ~2023-04-21 | XR_ITS ---
EXAMINATION: XR sacrum coccyx min 2V INDICATION: Low back pain TECHNIQUE: Three views of the sacrum and coccyx are obtained. COMPARISON: None available FINDINGS: Bone alignment is normal. There is no fracture. No abnormal sclerosis or erosion of the sac roiliac joints is identified. IMPRESSION: 1. No acute osseous abnormality. Reviewed, dictated and finalized at location B. SERVICE SUPERVISOR
== END 2023-04-21 09:37 | disposition home or self-care (01) ==
PROVIDERS: PCP Family Medicine; Visit Provider Nurse Practitioner Family
DX: M47.816 Spondylosis without myelopathy or radiculopathy, lumbar region (principal); M53.3 Sacrococcygeal disorders, not elsewhere classified; M25.552 Pain in left hip
CPT/HCPCS: 72110; 72220; 73502

== ENCOUNTER 2023-09-08 08:49 | Outpatient (CLI) | payer BC, SELFPAY ==
[2023-09-08 19:19] LABS: Basophils Absolute Auto 0.1 K/mm3 (0.0-0.1); Basophils Percent Auto 0.9 % (0.2-1.2); Eosinophils Absolute Auto 0.7 K/mm3 (0-0.3); Eosinophils Percent Auto 11.5 % (0-4.4); Hematocrit 44.3 % (42.0-52.0); Hemoglobin 14.8 g/dL (14.0-18.0); Immature Granulocyte Absolute 0.02 K/mm3 (0.00-0.031); Immature Granulocyte Percent A 0.3 % (0-0.5); Mean Corpuscular HGB Conc 33.4 g/dl (32-36); Mean Corpuscular Hemoglobin 30.6 pg (26-34); Mean Corpuscular Volume 91.5 fl (80-100); Mean Platelet Volume 10.6 fl (7.4-10.4); Monocytes Absolute Auto 0.6 K/mm3 (0.1-0.6); Monocytes Percent Auto 8.9 % (2.6-8.5); Neutrophils Absolute Auto 2.9 K/mm3 (1.3-6.7); Neutrophils Percent Auto 45.4 % (45.5-73.1); Platelet Count Result 268 k/mm3 (150-375); Red Blood Count 4.84 M/mm3 (4.6-6.20); Red Cell Distribution Width 12.6 % (11.5-14.5); White Blood Count 6.4 K/mm3 (4.5-10.0)
[2023-09-08 19:54] LABS: Free T4 Free Thyroxine 1.16 ng/mL (0.78-2.19); Vitamin D 25 Hydroxy 45.6 ng/mL
[2023-09-08 20:08] LABS: Alanine Aminotransferase 84 U/L (6-50); Albumin Level 4.5 g/dL (3.5-5.1); Alkaline Phosphatase 89 U/L (38-126); Anion Gap 10 mmol/L (4-12); Aspartate Amino Transferase 53 U/L (17-59); Bilirubin,Total 0.6 mg/dL (0.2-1.3); Blood Urea Nitrogen 21 mg/dL (9-20); Calcium 9.6 mg/dL (8.4-10.2); Carbon Dioxide 30 mmol/L (22-30); Chloride 98 mmol/L (98-107); Cholesterol 192 mg/dL (0-200); Estimated Glomerular Filt Rate > 60; Glucose 86 mg/dL (65-110); HDL Direct 40 mg/dL; Sodium 138 mmol/L (137-145); Triglycerides 122 mg/dL (<150)
[2023-09-08 20:19] LABS: LDL Cholesterol Direct 107 mg/dL
[2023-09-08 20:49] LABS: Hemoglobin A1C 5.9 % (<5.7)
== END 2023-09-08 08:50 | disposition home or self-care (01) ==
LOC: ANHGOSHLAB 08:51
PROVIDERS: PCP Family Medicine; Visit Provider Family Medicine
DX: E78.5 Hyperlipidemia, unspecified (principal); E55.9 Vitamin D deficiency, unspecified; R73.9 Hyperglycemia, unspecified; R53.83 Other fatigue
CPT/HCPCS: 36415; 80053; 80061; 82306; 83036; 84439; 84443; 85025

== ENCOUNTER 2023-12-07 08:26 | Outpatient (CLI) | payer BC, SELFPAY ==
[2023-12-07 13:13] LABS: Alanine Aminotransferase 27 U/L (6-50); Albumin Level 4.5 g/dL (3.5-5.1); Alkaline Phosphatase 85 U/L (38-126); Anion Gap 9 mmol/L (4-12); Aspartate Amino Transferase 45 U/L (17-59); Bilirubin,Total 0.6 mg/dL (0.2-1.3); Blood Urea Nitrogen 25 mg/dL (9-20); Calcium 9.6 mg/dL (8.4-10.2); Carbon Dioxide 28 mmol/L (22-30); Chloride 100 mmol/L (98-107); Estimated Glomerular Filt Rate > 60; Glucose 93 mg/dL (65-110); Potassium 4.5 mmol/L (3.4-5.0); Sodium 137 mmol/L (137-145)
== END 2023-12-07 08:27 | disposition home or self-care (01) ==
LOC: ANHGOSHLAB 08:27
PROVIDERS: PCP Family Medicine; Visit Provider Family Medicine
DX: R74.8 Abnormal levels of other serum enzymes (principal)
CPT/HCPCS: 36415; 80053